=== PATIENT | female | born 1985 | race Caucasian/White ===

== ENCOUNTER 2018-01-12 10:12 | Outpatient (RCR) | payer OTHER ==
[~2018-01-12] VITALS: Ht 157.5 cm; Wt 77.0 kg
[2018-01-12] VITALS (11 sets, daily range): BP systolic 74–108; BP diastolic 46–56; PULSE 68–82; TEMP 98.2
[~2018-01-12 10:12] MED LIST: MOTRIN 800800 MG/TAB PO; PERCOCET 325 MG1 TA2 PO; PRENATAL1 TA7 PO
== END 2018-01-12 15:00 | disposition home or self-care (01) ==
LOC: EUO 10:12
DX: D69.3 Immune thrombocytopenic purpura (principal); D64.9 Anemia, unspecified
CPT/HCPCS: P9016

== ENCOUNTER 2018-01-29 07:09 | Outpatient (CLI) | payer OTHER ==
[2018-01-29] VITALS (7 sets, daily range): BP systolic 84–110; BP diastolic 40–72; PULSE 64–89; TEMP 98–98.2
[~2018-01-29] VITALS: Ht 157.5 cm; Wt 75.0 kg
[2018-01-29 10:45] LABS: MEAN CELL VOLUME 110 fl (80.0-100.0); MEAN CORPUSCULAR HGB CONC 33 g/dl (33.0-37.0); MEAN PLATELET VOLUME 12.8 fl (7.4-10.4); REDCELL DISTRIBUTION WIDTH-CV 21.3 % (11.5-14.5)
[2018-01-29 11:04] LABS: HEMATOCRIT 19.8 % (37.0-47.0); HEMOGLOBIN 6.6 g/dl (12.5-16.0); MEAN CORPUSCULAR HEMOGLOBIN 37 pg (27.0-31.0); PLATELET COUNT 33 K/mm3 (130-400)
[2018-01-29 11:40] LABS: BAND 7 % (0-10); EOSINOPHIL 1 % (0-4); METAMYELOCYTE 4 % (0-0); MYELOCYTE 2 % (0-0); NUCLEATED RED BLOOD CELL 1 (0-6); PLATELET ESTIMATE DECREASED (NORMAL)
[2018-01-29 11:41] LABS: LYMPHOCYTE 47 % (20.0-51.0); NEUTROPHILS 37 % (42.0-75.2); POLYCHROMASIA 1+
[2018-01-29 11:42] LABS: TEAR DROP CELLS 1+
== END 2018-01-29 17:49 | disposition home or self-care (01) ==
LOC: SDCO 07:09
PROVIDERS: Pathology Anatomic Pathology & Clinical Pathology
DX: O99.112 Other diseases of the blood and blood-forming organs and certain disorders involving the immune mechanism complicating pregnancy, second trimester (principal); O99.012 Anemia complicating pregnancy, second trimester; D53.9 Nutritional anemia, unspecified; Z3A.25 25 weeks gestation of pregnancy; Z80.8 Family history of malignant neoplasm of other organs or systems; Z80.43 Family history of malignant neoplasm of testis
CPT/HCPCS: J2405; J2704; J3010; J7050; J7120; P9040

== ENCOUNTER → 2018-02-05 | Outpatient (REF) | LOC: ZLAB.WCH 17:48 | DX: Z01.89 Encounter for other specified special examinations (principal) ==

== ENCOUNTER 2018-02-14 10:30 | Outpatient (RCR) | payer OTHER | END 2018-02-14 10:41 | disposition home or self-care (01) | LOC: EUO 10:30 | DX: D69.3 Immune thrombocytopenic purpura (principal); D64.9 Anemia, unspecified ==